=== PATIENT | male | born 1985 | race Caucasian/White ===

== ENCOUNTER 2021-02-26 15:44 | Outpatient (REF) | payer BC, SELFPAY | END 2021-02-26 15:45 | disposition home or self-care (01) | LOC: HO.LAB 15:44 | PROVIDERS: Visit Provider Internal Medicine | DX: Z20.822 Contact with and (suspected) exposure to COVID-19 (principal) | CPT/HCPCS: C9803; U0003; U0005 ==

== ENCOUNTER 2021-04-13 11:09 | Outpatient (REF) | payer BC, SELFPAY | END 2021-04-13 11:10 | disposition home or self-care (01) | LOC: HO.LAB 11:09 | PROVIDERS: PCP Internal Medicine; Visit Provider Internal Medicine | DX: Z20.822 Contact with and (suspected) exposure to COVID-19 (principal) | CPT/HCPCS: C9803; U0003; U0005 ==

== ENCOUNTER → 2021-06-03 12:32 | Outpatient (BNVA) | payer BC, SELFPAY | PROVIDERS: PCP Internal Medicine; Referring Provider Internal Medicine; Visit Provider Internal Medicine Cardiovascular Disease | DX: R94.31 Abnormal electrocardiogram [ECG] [EKG] (principal) | CPT/HCPCS: 93005 ==

== ENCOUNTER 2022-12-25 10:15 | Outpatient (REF) | payer BC, SELFPAY | END 2022-12-25 10:16 | disposition home or self-care (01) | LOC: HO.LAB 10:15 | PROVIDERS: PCP Internal Medicine; Visit Provider Internal Medicine | DX: N28.9 Disorder of kidney and ureter, unspecified (principal); D64.9 Anemia, unspecified; E78.5 Hyperlipidemia, unspecified | CPT/HCPCS: 36415; 80053; 80061; 85025 ==

== ENCOUNTER 2023-01-21 | Outpatient (REF) | payer BC, SELFPAY ==
--- NOTE | ~2023-01-21 | XR_ITS ---
X-RAY RIGHT KNEE X-RAYS STANDING BILATERAL KNEES CLINICAL HISTORY: Pain. COMPARISON: No relevant prior studies are available for comparison. TECHNIQUE: 2 views of the right knee. 1 single standing view of both knees. FINDINGS: No acute fractures or malalignment. No significant joint space narrowing. No erosions or chondrocalcinosis. No joint effusion. No abnormal soft tissue calcifications. XR/XR knee RT 2V IMPRESSION: No significant radiographic abnormality to explain the patient's pain. Correlation with CT or MR could be obtained as clinically indicated.
--- NOTE | ~2023-01-21 | XR_ITS ---
X-RAY RIGHT KNEE X-RAYS STANDING BILATERAL KNEES CLINICAL HISTORY: Pain. COMPARISON: No relevant prior studies are available for comparison. TECHNIQUE: 2 views of the right knee. 1 single standing view of both knees. FINDINGS: No acute fractures or malalignment. No significant joint space narrowing. No erosions or chondrocalcinosis. No joint effusion. No abnormal soft tissue calcifications. XR/XR knee standing BI IMPRESSION: No significant radiographic abnormality to explain the patient's pain. Correlation with CT or MR could be obtained as clinically indicated.
== END 2023-01-21 00:01 | disposition home or self-care (01) ==
LOC: HO.HOSX
PROVIDERS: Visit Provider Physician Assistant
DX: S80.01XA Contusion of right knee, initial encounter (principal)
CPT/HCPCS: 73560; 73565

== ENCOUNTER 2023-01-21 08:51 | Outpatient (AMB) | payer BC, SELFPAY ==
--- NOTE | 2023-01-21 09:01 | A.OFFVIS_ITS ---
Intake Vital Signs 01/21/23 09:07 Height 6 ft 2 in Weight 211 lb BMI 27.1 Handedness Right Intake Visit Reasons: New Pt - Right knee pain Intake Note: Ramiro is a 37 year old male who presents today as a new patient for a evaluation for his right knee pain. Patient reports off and on pain for a month. He states when he was at a football game he was racing someone until when he was running with sandals and a little girl jumped in and he slipped landing on his knees. Pain is more focused on the top of the right knee per patient. Allergies cefaclor [From CECLOR] Allergy (Unknown, Verified 01/21/23 09:06) UNKNOWN shellfish derived [SHELLFISH DERIVED] Allergy (Unknown, Verified 01/21/23 09:06) SWELLING HPI New Pt - Right knee pain HPI Details 37-year-old male who presents in the office today, as a new patient, for an evaluation of right knee pain. The patient reports intermittent pain for a month, since 01/2023. He claims the pain began when he was at a football game racing someone on turf. He states he was running with sandals on and a little girl jumped in front of him causing him to slip and land on his bilateral knees. He states the right knee is worse then the left knee. He claims the pain is on the top of the right knee. He states the day after he has edema and fluid in the knee bilaterally. [facility] Surgical History No pertinent past surgical history Family History (Updated 12/14/22 @ 13:36 by ANA Shen) Father No problems noted. Mother No problems noted. Family/Other Diabetes Son In good health Sister In good health Social History (Updated 01/21/23 @ 09:06 by Joby Elias) Housing: House Patient Tobacco Use Status: Never used Tobacco e-Cigarette/Vaping Use: Never Used Second Hand Smoke Exposure: No service: No Current occupational status: employed Current occupation: shipping clerk/ right hand dominant Cognitive needs: No Hearing needs: No Vision needs: Yes Review of Systems Const All systems reviewed & are unremarkable except as noted in HPI and below Physical Exam Vital Signs: BMI result Body Mass Index 27.1 Const General: cooperative and no acute distress Orientation/consciousness: patient oriented x3 Resp Effort & Inspection: normal respiratory effort and able to speak in complete sentences Cardio Peripheral pulses: Peripheral pulses 2+ throughout Skin General skin exam: no rashes or lesions noted Neuro General: patient oriented x3 Extrem Other: Right knee: Normal to inspection. No ecchymosis, erythema, or joint effusion. No tenderness to palpation to the medial or lateral joint lines. Mild tenderness with patella grind. No palpable defect at the quad or patella tendon. Full knee extension and flexion. Negative Alfreda's. Negative anterior draw. NVI. Assessment & Plan Assessment & Plan (1) Contusion of right knee: Code(s): S80.01XA - Contusion of right knee, initial encounter Plan Mr. Edwards is a 37-year-old male who presents in the office today, as a new patient, for an evaluation of right knee pain. The patient reports intermittent pain for a month, since 01/2023. He claims the pain began when he was at a football game racing someone on turf. He states he was running with sandals on and a little girl jumped in front of him causing him to slip and land on his bilateral knees. He states the right knee is worse then the left knee. He claims the pain is on the top of the right knee. He states the day after he has edema and fluid in the knee bilaterally. I discussed the role of physical therapy to work on strengthening the knee. Due to the patient?s symptoms starting to resolve we have agreed to defer at this time. He was instructed to take ibuprofen when he started to feel tightness in the knee. He was asked to call the office if he feels the knee has increased in edema or is unable to bend the knee. He was given a genumed knee brace, off the shelf, while in the office today. Follow up will be PRN, or sooner if needed. X-rays of the right knee which were obtained while in the office today and were reviewed by me, Leonor Cook PA-C, revealed no evidence of acute fracture or dislocation. Orders: Orders XR knee RT 2V Today M25.569 - Pain in unspecified knee XR knee standing BI Today M25.569 - Pain in unspecified knee Patient Instructions: Scribed for Leonor Cook PA-C by Shyanne Medrano, medical associate, on 01/21/2023 at 8:53 am, EST. Coding Level of Care Code New Pt Level 3 (55080) Diagnoses Contusion of right knee S80.01XA
[2023-01-21 09:07] VITALS: BMI 27.1
== END 2023-01-21 09:23 | disposition home or self-care (01) ==
PROVIDERS: PCP Internal Medicine; Visit Provider Physician Assistant
DX: S80.01XA Contusion of right knee, initial encounter (principal); M25.561 Pain in right knee
CPT/HCPCS: 99203

== ENCOUNTER 2024-02-14 10:41 | Outpatient (AMB) | payer BC, SELFPAY ==
[2024-02-14 10:42] VITALS: BP 140/84; PULSE 77; O2SAT 96; BMI 28.4
--- NOTE | 2024-02-14 10:42 | MHC.PC.OV ---
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 Accompanied by: Self / Same As Patient Allergies cefaclor [From CECLOR] Allergy (Unknown, Verified 02/14/24 10:43) UNKNOWN shellfish derived [SHELLFISH DERIVED] Allergy (Unknown, Verified 02/14/24 10:43) SWELLING Medication List - Last Reconciled 02/14/24 by Danny Pavon MD No Known Home Meds Tobacco use date assessed: 02/14/24 Dental Screening Dental Screen Date: 02/14/24 Did you have a dental visit in the last 12 months?: Yes Did you have a dental problem in the last 6 months where you did not have access to dental care?: No Was dental information given to patient?: Patient has dentist HPI Knee pain HPI Details injured left knee 2 weeks ago twisting; initially swollen and pain; pain persists [facility] Surgical History No pertinent past surgical history Family History (Updated 12/14/22 @ 13:36 by ANA Shen) Father No problems noted. Mother No problems noted. Family/Other Diabetes Son In good health Sister In good health Social History (Updated 01/21/23 @ 09:06 by Joby Elias) Housing: House Patient Tobacco Use Status: Never used Tobacco Tobacco use type: Cigarette e-Cigarette/Vaping Use: Never Used Second Hand Smoke Exposure: No service: No Current occupational status: employed Current occupation: volleyball assistant coach/ right hand dominant Cognitive needs: No Hearing needs: No Vision needs: Yes Questionnaire PHQ-9 Over the last 2 weeks, how often have you been bothered by any of the following problems? 1. Little interest or pleasure in doing things: not at all 2. Feeling down, depressed, or hopeless: not at all 3. Trouble falling or staying asleep, or sleeping too much: not at all 4. Feeling tired or having little energy: not at all 5. Poor appetite or overeating: not at all 6. Feeling bad about yourself - or that you are a failure or have let yourself or your family down: not at all 7. Trouble concentrating on things, such as reading the newspaper or watching television: not at all 8. Moving or speaking so slowly that other people could have noticed. Or the opposite - being so fidgety or restless that you have been moving around a lot more than usual: not at all 9. Thoughts that you would be better off or of hurting yourself in some way: not at all Total score: 0 Depression Screening Interpretation: Negative Depression Screening Done: Yes [id number] - PHQ-9 Billing: Yes Source: Developed by Drs. Kali Ravi, Katie Hester, Matt Thompson and colleagues, with an educational adams from [employer]. Thrive Questionnaire Date Thrive assessed: 02/14/24 I am a: Patient What is your living situation today?: I have a steady place to live Within the past 12 months, did the food you bought not last and you didn't have the money to get more?: Never true Within the past 12 months, did you worry whether your food would run out before you got money to buy more?: Never true Do you have trouble paying for medicines?: No Do you have trouble getting transportation to medical appointments?: No Do you have trouble paying your heating and electricity bill?: No Do you have trouble taking care of your child, family member or friend?: No Do you have trouble with day-to-day activities such as bathing, preparing meals, shopping, managing finances, etc.?: No Are you currently unemployed and looking for a job?: No Are you interested in more education?: No THRIVE Score: 0 AUDIT C Alcohol Use Questionnaire (AUDIT-C) 1. How often do you have a drink containing alcohol?: 2-4 times a month 2. How many drinks containing alcohol do you have on a typical day when you are drinking?: 1 or 2 Total Score: 2 Score Reviewed/Action Taken: Yes WERNER-7 AMB Questionnaire WERNER-7 Date WERNER - 7 assessed: 02/14/24 Feeling nervous, anxious, or on edge: 0 = Not at all Not being able to stop or control worryin = Not at all Worrying too much about different things: 0 = Not at all Trouble relaxin = Not at all Being so restless that it is hard to sit still: 0 = Not at all Becoming easily annoyed or irritable: 0 = Not at all Feeling afraid as if something awful might happen: 0 = Not at all Total WERNER-7 score (0-4 normal; 5-9 mild; 10-14 moderate; 15-21 severe): 0 Source: Developed by Drs. Kali Ravi, Katie Hester, Matt Thompson and colleagues, with an educational adams from [employer]. WERNER-7 Assessment Billing WERNER-7 Assessment Tool: WERNER-7 Assessment 77103 Review of Systems Const Denies chills, Denies headache(s) and Denies weight loss ENT Denies headache(s) Card Denies chest pain, Denies syncope, Denies irregular heart rhythm and Denies dyspnea Resp Denies chest congestion, Denies cough and Denies dyspnea GI Denies abdominal pain, Denies change in stool character, Denies nausea and Denies vomiting Musc Denies deformity and Denies joint swelling Neuro Denies syncope and Denies headache(s) Physical exam (Primary Care) Vital Signs: Last Vital Signs Pulse 77 02/14/24 10:42 BP 140/84 H 02/14/24 10:42 Pulse Ox 96 02/14/24 10:42 Oxygen Delivery Method Room Air 02/14/24 10:42 BMI result Body Mass Index 28.4 Tobacco/Smoking Status: Tobacco use Status Tobacco use date assessed 02/14/24 02/14/24 10:47 Patient Tobacco Use Status Never used Tobacco 02/14/24 10:47 Tobacco use type Cigarette 02/14/24 10:47 e-Cigarette/Vaping Use Never Used 02/14/24 10:47 PHQ-9: PHQ-9 Score PHQ-9: Total score 0 02/14/24 10:47 Depression Screening Interpretation: Negative Thrive Assessment: Date of Thrive Assessment Date Thrive assessed 02/14/24 02/14/24 10:47 Const General: cooperative, comfortable, no acute distress and alert Neck Neck: Yes no lymphadenopathy Thyroid: Thyroid normal Resp Effort & Inspection: normal respiratory effort Auscultation: clear to auscultation bilaterally Percussion: percussion normal Cardio Jugular venous distension: no JVD Palpation: normal PMI Rate: regular rate Rhythm: regular rhythm Heart sounds: S1 normal heart sound present and S2 normal heart sound present GI Inspection: Yes normal to inspection Palpation (GI): No hepatosplenomegaly present Skin General skin exam: no rashes or lesions noted Extrem Other: effusion left knee; stable ligaments Assessment and Plan Assessment & Plan (1) Left knee pain: Code(s): M25.562 - Pain in left knee Plan: ice and nsaids; xr and ortho ref Orders: Orders XR knee LT 2V Today M25.569 - Pain in unspecified knee Referrals Orthopedics Referral M25.562 - Pain in left knee Coding Level of Care Code Est Pt Level 3 (19294) Diagnoses Left knee pain M25.562 Additional Codes WERNER-7 Assessment Billing - WERNER-7 Assessment Tool: WERNER-7 Assessment [id number] ([id number])
== END 2024-02-14 11:12 | disposition home or self-care (01) ==
PROVIDERS: PCP Internal Medicine; Visit Provider Internal Medicine
DX: M25.562 Pain in left knee (principal)
CPT/HCPCS: 99213

== ENCOUNTER 2024-02-14 11:18 | Outpatient (REF) | payer BC, SELFPAY ==
--- NOTE | ~2024-02-14 | XR_ITS ---
EXAMINATION: XR KNEE, LEFT CLINICAL INFORMATION: Left knee pain. COMPARISON: Left knee radiograph dated 01/21/2023. TECHNIQUE: AP and lateral views of the left knee. FINDINGS: No acute fracture or dislocation. No joint space narrowing or marginal osteophytes. No osseous erosion. Small joint effusion. No abnormal soft tissue calcification. XR/XR knee LT 2V IMPRESSION: Small joint effusion. Electronically signed by: Viraj Calloway MD 03/05/2024 09:07 PM EDT
== END 2024-02-14 11:19 | disposition home or self-care (01) ==
LOC: HO.XRAY 11:18
PROVIDERS: PCP Internal Medicine; Visit Provider Internal Medicine
DX: M25.562 Pain in left knee (principal)
CPT/HCPCS: 73560

== ENCOUNTER 2024-03-02 10:26 | Outpatient (AMB) | payer BC, SELFPAY ==
--- NOTE | 2024-03-02 10:43 | A.OFFVIS_ITS ---
Vital Signs 03/02/24 10:46 Height 6 ft 2 in Weight 221 lb BMI 28.4 Intake Visit Reasons: New Prob - left knee injury, DOI 02/03/24 Intake Note: Ramiro is a 39 year old male who presents today for a evaluation of his left knee pain, DOI 01/31/24. 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 He was a work when he turned and felt a pop. His pain is located at the medial and posterior aspect of knee and with bending his knee he has pain and clicking. Denies numbness and tingling. His swelling has improved however with activity he will have swelling. Finds relief with taking Motrin and aleve. Allergies cefaclor [From CECLOR] Allergy (Unknown, Verified 03/02/24 10:49) UNKNOWN shellfish derived [SHELLFISH DERIVED] Allergy (Unknown, Verified 03/02/24 10:49) SWELLING HPI HPI New Prob - left knee injury, DOI 02/03/24: Details: 39-year-old male who presents in the office today for an evaluation of left knee pain. The patient was seen by his PCP on 02/14/24 status post twisting the left knee two weeks prior to presentation. ? ? 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 He states when at work he will turn and feels the knee pop. He claims the pain is along the medial posterior aspect of the left knee. He also confirms pain and clicking when bending the left lower extremity. He states the edema has improved, however, returns with activities. He confirms relief with the use of Motrin and Aleve. He denies numbness and tingling. ?? [facility] Surgical History No pertinent past surgical history Family History (Updated 12/14/22 @ 13:36 by ANA Shen) Father No problems noted. Mother No problems noted. Family/Other Diabetes Son In good health Sister In good health Social History Housing: House Patient Tobacco Use Status: Never used Tobacco Tobacco use type: Cigarette e-Cigarette/Vaping Use: Never Used Second Hand Smoke Exposure: No service: No Current occupational status: employed Current occupation: welder assistant/ right hand dominant Cognitive needs: No Hearing needs: No Vision needs: Yes Review of Systems Const All systems reviewed & are unremarkable except as noted in HPI and below Physical Exam Vital Signs: BMI result Body Mass Index 28.4 Const General: cooperative, healthy appearing and no acute distress Resp Effort & Inspection: normal respiratory effort and able to speak in complete sentences Cardio Rate: regular rate Peripheral pulses: Peripheral pulses 2+ throughout GI Palpation (GI): Soft to palpation Skin Lesions: no lesions Rashes: no rashes Extrem Other: Left knee: Normal to inspection. No ecchymosis, erythema, or joint effusion. No tenderness to palpation along the medial or lateral joint lines. Full knee extension and flexion. Positive Alfreda's along the medial joint line. Negative anterior drawer. NVI.? Assessment & Plan Assessment & Plan (1) Internal derangement of left knee: Code(s): M23.92 - Unspecified internal derangement of left knee Category: Medical Plan Mr. Edwards is a 39-year-old male who presents in the office today for an evaluation of left knee pain. The patient was seen by his PCP on 02/14/24 status post twisting the left knee two weeks prior to presentation. ? ? 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 He states when at work he will turn and feels the knee pop. He claims the pain is along the medial posterior aspect of the left knee. He also confirms pain and clicking when bending the left lower extremity. He states the edema has improved, however, returns with activities. He confirms relief with the use of Motrin and Aleve. He denies numbness and tingling. ?? ? Due to the patient having issues with pain and associated edema for the past few years intermittently, we are going to proceed with an MRI to further evaluate the integrity of the left knee. I informed the patient that sometimes insurance requires physical therapy to be obtained prior to authorizing MRI imaging. Should his MRI be declined or denied because of this, he will have to attend four to six weeks of physical therapy. The patient demonstrates understanding. Follow-up will be after the MRI is obtained, or sooner if needed. ? ? X-rays of the left knee, obtained on 02/14/24, revealed: no acute fracture or dislocation. ? Orders: Orders MR knee LT wo con Today M23.92 - Unspecified internal derangement of left knee Patient Instructions: Scribed by Shyanne Medrano medical videographer, for Leonor Cook PA-C on 03/02/2024 at 10:28 am, EST.? Coding Level of Care Code New Pt Level 4 (35240) Diagnoses Internal derangement of left knee M23.92
[2024-03-02 10:46] VITALS: BMI 28.4
== END 2024-03-02 11:02 | disposition home or self-care (01) ==
PROVIDERS: PCP Internal Medicine; Visit Provider Physician Assistant
DX: M23.92 Unspecified internal derangement of left knee (principal)
CPT/HCPCS: 99213

== ENCOUNTER → 2024-03-02 10:26 | Outpatient (BNVA) | payer BC, SELFPAY | PROVIDERS: PCP Internal Medicine; Visit Provider Physician Assistant ==

== ENCOUNTER 2024-04-03 19:28 | Outpatient (REF) | payer BC, SELFPAY ==
--- NOTE | ~2024-04-03 | MR_ITS ---
EXAMINATION: MR KNEE WITHOUT CONTRAST, LEFT CLINICAL INFORMATION: Internal derangement of the left knee patient reports pain when walking. COMPARISON: X-rays of the left knee January 2024 TECHNIQUE: MRI of the knee without contrast was performed using routine sequences on a high-field scanner. FINDINGS: MENISCI: Medial Meniscus: Intact Lateral Meniscus: Intact LIGAMENTS: Cruciate: Intact Collateral: Intact EXTENSOR MECHANISM: Intact ARTICULAR CARTILAGE/BONE: Patellofemoral Compartment: There is mild cartilage heterogeneity of the distal medial trochlea cartilage extending over 3 x 8 mm area. Patellar cartilage normal. Overall minimal patellofemoral arthrosis . Medial Compartment: Normal Lateral Compartment: Normal JOINT FLUID AND BURSAE: Trace Disla's cyst MR/MR knee LT wo con IMPRESSION: 1. Minimal patellofemoral arthrosis. 2. Trace Disla's cyst. Electronically signed by: Jesus Chua MD 04/14/2024 07:37 AM EDT
== END 2024-04-03 19:29 | disposition home or self-care (01) ==
LOC: HO.MRI 19:28
PROVIDERS: PCP Internal Medicine; Visit Provider Physician Assistant
DX: M23.92 Unspecified internal derangement of left knee (principal)
CPT/HCPCS: 73721